=== PATIENT | female | born 1960 | race Caucasian/White ===

== ENCOUNTER 2019-02-18 08:15 | Outpatient (REF) | payer BC, SELFPAY ==
[2019-02-18 12:16] LABS: TSH 3.51 uIU/mL (0.358-3.74)
== END 2019-02-18 08:35 ==
LOC: NCHCN 08:15
PROVIDERS: PCP Nurse Practitioner; Visit Provider Internal Medicine
DX: E03.9 Hypothyroidism, unspecified (principal)
CPT/HCPCS: 84443

== ENCOUNTER 2020-08-15 15:53 | Outpatient (REF) | payer BC, SELFPAY ==
[2020-08-15 21:51] LABS: TSH (W/Ref FT4) 1.88 uIU/mL (0.36-3.74)
[2020-08-15 22:03] LABS: Hemoglobin A1C 6.1 % (<5.7)
== END 2020-08-15 16:13 ==
LOC: NCHCN 15:53
PROVIDERS: PCP Nurse Practitioner; Visit Provider Internal Medicine
DX: E03.9 Hypothyroidism, unspecified (principal); R73.9 Hyperglycemia, unspecified
CPT/HCPCS: 83036; 84443

== ENCOUNTER 2020-08-24 08:58 | Outpatient (CLI) | payer BC, SELFPAY ==
--- NOTE | 2020-08-24 13:15 | DI.MAMMO_ITS ---
EXAM: MG MAMMO SCREENING CLINICAL HISTORY: SCREENING, Z12.31 TECHNIQUE: Bilateral full field digital CC and MLO mammographic images were obtained with 3D tomosyn thesis and utilizing computer aided detection (CAD). COMPARISON: Available for comparison. FINDINGS: Masses/Architectural Distortion: None seen. Microcalcifications: No suspicious pleomorphic-type are seen. Skin Thickening/Nipple Retraction: None. IMPRESSION: 1. No significant interval change with no specific features of malignancy noted. 2. Unless there is more urgent need, screening mammography is recommended, as per [employer] guidelines. BI-RADS Category 1 - Negative Breast Density - Category B - Scattered areas of fibroglandular density A negative radiographic report should not delay biopsy if a dominant or clinically suspicious mass is present. Up to ten percent of cancers are not identified on mammography. A negative report may reinforce clinical impression. Adenosis and dense breasts may obscure an underlying neoplasm. False positive reports average 6 to 10%. Patient will receive a letter notifying them of these results.
== END 2020-08-24 09:18 ==
PROVIDERS: PCP Nurse Practitioner; Visit Provider Internal Medicine
DX: Z12.31 Encounter for screening mammogram for malignant neoplasm of breast (principal)
CPT/HCPCS: 77063; 77067

== ENCOUNTER 2021-08-22 14:48 | Outpatient (REF) | payer BC, SELFPAY ==
[2021-08-22 15:05] LABS: ALT 35 U/L (14-59); AST 21 U/L (15-37); Alkaline Phosphatase 100 U/L (46-116); Anion Gap 7.8 mmol/L (3-11); BUN 18 mg/dL (7-18); Bilirubin, Total 0.3 mg/dL (0.2-1.0); CO2 28.2 mmol/L (21.0-32.0); CREATININE 0.8 mg/dL (0.55-1.02); Calcium 9.1 mg/dL (8.5-10.1); Calculated LDL 180 mg/dL (<100); Chloride 105 mmol/L (98-107); Cholesterol 256 mg/dL (<200); Glucose 96 mg/dL (74-106); HDL Cholesterol 50 mg/dL (40-60); Potassium 4.8 mmol/L (3.5-5.1); Sodium 141 mmol/L (136-145); TSH (W/Ref FT4) 2.47 uIU/mL (0.36-3.74); Total Protein 7.4 g/dL (6.4-8.2); Triglyceride 134 mg/dL (<150)
== END 2021-08-22 14:49 | disposition home or self-care (01) ==
LOC: NCHCN 14:48
PROVIDERS: PCP Nurse Practitioner; Visit Provider Family Medicine
DX: R73.03 Prediabetes (principal); E03.9 Hypothyroidism, unspecified; E78.5 Hyperlipidemia, unspecified; Z00.00 Encounter for general adult medical examination without abnormal findings
CPT/HCPCS: 80053; 80061; 84443

== ENCOUNTER → 2022-03-13 12:37 | Outpatient (CLI) | payer MEDICAID, SELFPAY ==
--- NOTE | 2022-03-13 11:02 | DI.RAD_ITS ---
Exam(s) XR KNEE LT 3V AP,LAT,LORRAINE EXAM: XR KNEE LT 3V AP,LAT,LORRAINE CLINICAL HISTORY: Left Knee Pain - M25.562. TECHNIQUE: 2D digital imaging was performed. COMPARISON: No exams were available for comparison FINDINGS: 3 views There is no evidence fracture although there does appear to be a small joint effusion may signify an internal derangement. No obvious degenerative changes nor osseous lesions. Bone density is normal. IMPRESSION: DATA REPOSITORY: RADIATION DOSE DELIVERED:
== END ==
PROVIDERS: PCP Family Medicine; Visit Provider Family Medicine
DX: M25.562 Pain in left knee (principal); M25.462 Effusion, left knee
CPT/HCPCS: 73562

== ENCOUNTER → 2022-04-25 01:29 | Outpatient (CLI) | payer MEDICAID, SELFPAY ==
--- NOTE | 2022-04-25 06:45 | DI.MRI_ITS ---
Exam(s) MR LOWER JOINT LT WO EXAM: MR LOWER JOINT LT WO CLINICAL HISTORY: PAIN,INTERNAL DERANGEMENT LT KNEE, M23.92 TECHNIQUE: Multiplanar multisequence MRI of the left knee was performed. COMPARISON: CR XR KNEE LT 3V AP,LAT,LORRAINE from 03/13/2022 FINDINGS: EFFUSION: There is a small knee joint effusion. There is also a small charles cyst in the medial popli teal fossa. MARROW:There is prominent bone contusion signal in the tibial plateau, more so medially than laterall y and there is also mild bone edema in the subarticular medial femoral condyle. Also some bone edema in the patella (see below) PATELLOFEMORAL COMPARTMENT: The quadriceps tendon is intact. The patellar ligament is intact. There is significant thinning of the retropatellar cartilage over both facets. Over the central post erior aspect there is full-thickness thinning and subjacent small degenerative cysts in the posterior subarticular patella at this level with surrounding edema in the patella at this level. CRUCIATE LIGAMENTS: The anterior cruciate ligament is intact.The posterior cruciate ligament is intac t. MEDIAL COMPARTMENT/MEDIAL MENISCUS: There is a tear at the level of the root of the posterior horn of the medial meniscus just proximal to its attachment site. In the outer aspect of the meniscus there is some increased signal but has appearance more of myxoid degeneration the true tear. The anterior horn of the medial meniscus is intact. There is mild extrusion of the posterior horn but without gu tter descent. No significant meniscocapsular separation.. There is some cartilage thinning and subarticular edema over the main weight-bearing surface of the m edial femoral condyle. There is no formed osteochondral defect. MEDIAL COLLATERAL LIGAMENT: There is some signal abnormality around the MCL but without a high-grade tear of this structure. LATERAL COMPARTMENT/LATERAL MENISCUS: There is no evidence of lateral meniscal tear.Minimal cartilage findings over the lateral condyle. No subarticular edema in the lateral condyle although there is m ild amount of subarticular edema in the lateral tibial plateau. No fracture lines. ILIOTIBIAL BAND: Intact LATERAL COLLATERAL LIGAMENT COMPLEX: The fibular collateral ligament is intact. The biceps femoris t endon is intact.Popliteus muscle and tendon are intact. IMPRESSION: 1. There is a tear in the posterior horn of the medial meniscus at the level of the root. No bucket- handle configuration. Anterior horn of the medial meniscus is intact. Mild cartilage thinning and s ubarticular edema seen over the main weight-bearing surface of the medial femoral condyle. No osteoc hondral defects. 2. Some increased signal seen around the medial collateral ligament, most prominent just below the david int level. However, there is no high-grade MCL tear. 3. Cruciate ligaments and LCL complex are intact. 4. Advanced thinning of the retropatellar cartilage, most prominent mid level where there is also a s mall 2 millimeter degenerative subarticular cyst in the posterior subarticular patella with some surr ounding intra patellar edema. No evidence of patellar fracture. Other findings as above. DATA REPOSITORY:
== END ==
PROVIDERS: PCP Family Medicine; Visit Provider Student in an Organized Health Care Education/Training Program
DX: M23.92 Unspecified internal derangement of left knee (principal); S83.242A Other tear of medial meniscus, current injury, left knee, initial encounter; M85.68 Other cyst of bone, other site; M94.8X8 Other specified disorders of cartilage, other site; X58.XXXA Exposure to other specified factors, initial encounter
CPT/HCPCS: 73721

== ENCOUNTER 2022-09-18 08:33 | Day surgery (SDC) | payer MEDICAID, SELFPAY ==
--- NOTE | 2022-09-18 06:08 | W.PM.DSUDISC ---
Date of service: 09/18/22 Time of Service: 10:54 Discharge Plan Disposition Patient Disposition: HOME Condition: Good Discharge Details Reason For Visit: screening colonoscopy Attending Provider: Adilson Fraser Primary Care Provider: Michael Morales Home Meds and New Rx's Prescriptions: Continued Saccharomyces boulardii [Digest Probiotic (S.boulardii)] 250 mg capsule 5,000 mmu cells PO DAILY naproxen 125 MG/5 ML suspension 250 mg PO Q6H PRN levothyroxine 25 mcg capsule 25 mcg PO DAILY epinephrine 0.3 mg/0.3 mL auto-injector 0.3 mg IM ONCE Rx Instructions: as a single dose cholecalciferol (vitamin D3) 25 mcg (1,000 unit) capsule 25 mcg PO DAILY loratadine 10 mg Capsule 10 mg PO DAILY Discontinued bisacodyl [Dulcolax (bisacodyl)] 5 mg tablet,delayed release (DR/EC) 5 mg PO ONCE Qty: 4 0RF Rx Instructions: Take according to provider's instructions for colonoscopy prep. polyethylene glycol 3350 17 gram/dose powder 17 g PO ONCE Qty: 238 0RF Rx Instructions: To be taken as directed by prescriber's office for colonoscopy prep. Discharge Instructions Additional Instructions: 1. If tolerated, consume a soft, low fiber diet for 1-2 days. 2[address] Do not drive, drink alcohol, operate machinery, make critical decisions, or do activities that require coordination or balance for 24 hours. 3. Because air was put into your colon during the procedure, expelling air from your rectum (passing gas or farting) is normal. 4. You may not have a bowel movement for 1-3 days because of the colonoscopy prep. This is normal. 5. Go directly to the emergency room if you notice any of the following: Develop chills (warm to touch), or if you have a thermometer and your temperature is above 101 Difficulty breathing or difficultly swallowing Persistent vomiting Severe abdominal pain, other than gas cramps Severe chest pain Black, tarry stools Any bleeding ? exceeding one tablespoon 6. Call your physician if the site where your intravenous was started becomes red, swollen, painful, and warm to touch. 7. Your physician has reviewed your pre-procedure medications. Please continue to take those medications as previously ordered. You will be given specific information/education regarding any changes to your medications before leaving. Activity:: Activity as Tolerated Diet:: As Tolerated Discharge Orders Discharge Orders: Discharge Order (Routine); Ordered 09/18/22 Ordered By: Adilson Fraser DS: Diagnosis Discharge Diagnosis (1) Screening for colon cancer: Status: Acute Asessment and Plan: No evidence of any polyps. Very mild diverticulosis. Follow-up for next colonoscopy in 10 years
--- NOTE | 2022-09-18 06:10 | W.COLOREPORT ---
Date of service: 09/18/22 Time of Service: 10:55 Colonoscopy Report Date of procedure: 09/18/22 Pre-op diagnosis general: Routine health maintenance screening colonoscopy Post-op diagnosis procedure note: other (Mild diverticulosis) Procedure: Screening colonoscopy Surgeon: Adilson Fraser Anesthesia Type: General:No Airway Estimated blood loss (mL): 0 Pathology: none sent Complications: None Disposition: same day Indications: Monserrat is 62 years old and had a previous colonoscopy in the past that revealed hyperplastic polyps. She is here for 10-year follow-up screening colonoscopy as part of routine health maintenance Prep: Miralax/Dulcolax Procedure Start Time: 10:37 Procedure End Time: 10:47 Retraction Time: 8 Findings: very mild diverticulosis Procedure Description: After the induction of monitored anesthetic care, and with the patient in left lateral decubitus position, I began by performing an external anorectal exam.? Perineum and skin were normal, as was the anal verge.? There was no evidence of external hemorrhoids.? Next, I performed a digital rectal exam.? I did not appreciate any abnormal findings.? Next, I advanced a colonoscope into the rectal vault.? I performed retroflexion.? I did not see signs of pathologic internal hemorrhoids.? Using insufflation, I then advanced the colonoscope beyond the rectal folds and into the sigmoid colon before advancing towards the cecum.? The quality of the prep was excellent.? The scope was noted to be in the cecum by identification of the ileocecal valve and appendiceal orifice.? I then began withdrawing the colonoscope using repeated irrigation as necessary for full evaluation of the colonic mucosa. There was minimal sigmoid diverticulosis. Once the scope was withdrawn to the level of the rectum, great care was taken to examine portions of the rectal folds.? Finally, the scope was withdrawn and the patient was brought to the same-day surgery recovery unit as the anesthetic wore off. ?The findings and instructions were shared with the patient prior to discharge.
[2022-09-18 08:06] VITALS: BP 118/72; PULSE 69; RESP 16; TEMP 36.2; O2SAT 99
[2022-09-18] MEDS: Lactated Ringers 1,000 ML 80 ML IV (09:05)
--- NOTE | 2022-09-18 09:27 | W.ANESPRE ---
General Info Date of Service Date Performed: 09/18/22 Height: 5 ft 3 in Weight: 81.737 kg Body Mass Index (BMI): 31.9 Surgical Procedure: Operation Date: 09/18/22 10:05 Proposed Procedure Side Surgeon kia Fraser MD Meds Allergies and Home Medications Allergies Allergy/AdvReac Type Severity Reaction Status Date / Time No Known Drug Allergies Allergy Unverified 09/18/22 08:40 Home Medication Medication Instructions Recorded naproxen 125 mg/5 mL oral 250 mg PO Q6H PRN 08/31/15 suspension cholecalciferol (vitamin D3) 25 25 mcg PO DAILY 09/05/21 mcg (1,000 unit) capsule epinephrine 0.3 mg/0.3 mL 0.3 mg IM ONCE 09/05/21 injection, auto-injector levothyroxine 25 mcg capsule 25 mcg PO DAILY 09/05/21 Saccharomyces boulardii 250 mg 5,000 mmu cells PO DAILY 09/10/22 capsule (Digest Probiotic (S.boulardii)) loratadine 10 mg capsule 10 mg PO DAILY 09/17/22 Current Visit Medications: Current Medications Generic Name Dose Route Start Last Admin Trade Name Freq PRN Reason Stop Dose Admin Hyoscyamine Sulfate 0.125 mg 09/18/22 06:11 Hyoscyamine 0.125 Mg Sl/Oral/Chew SL DIRECTED PRN Ringer's Solution 1,000 mls @ 80 mls/hr 09/18/22 06:00 09/18/22 09:05 IV 10/17/22 23:59 80 mls/hr INFUSION GURPREET Administration IV Miscellaneous Supplies 1 each 09/18/22 06:00 Iv Access IV 10/17/22 23:59 DIRECTED GURPREET Ondansetron HCl 4 mg 09/18/22 06:11 Ondansetron 4 Mg/2 Ml Vial IVP Q4H PRN PRN Nausea / Vomiting Sodium Chloride 0 ml 09/18/22 06:00 Normal Saline Flush 10 Ml Syr IV 10/17/22 23:59 PRN PRN Sodium Chloride 0 ml 09/18/22 06:00 Normal Saline 10 Ml Vial IJ 10/17/22 23:59 DIRECTED PRN Sterile Water 0 ml 09/18/22 06:00 Water,Injection,Sterile 10 Ml Vial IJ 10/17/22 23:59 DIRECTED PRN PFSH Active Problems Active Problems: Problem Status Onset Code Screening for colon cancer Z12.11 Prediabetes R73.03 Intermittent palpitations R00.2 Hypothyroid E03.9 Family history of thyroid nodule Z83.49 Internal derangement of left knee 02/26/22 M23.92 Tear of medial meniscus of left knee S83.242A Medical History Medical History Asthma History of hemorrhoids History of thyroid nodule Hyperlipidemia Obesity Surgical History Surgical History History of colonoscopy Tobacco Smoking/Tobacco Use Status: Never Alcohol Alcohol Intake: never Substance Use Substance use: Never Substance use type: does not use Vital Signs and Lab Results Vital Signs Most Recent Vital Signs in EMR: Most Recent Vital Signs Temp Pulse Resp BP Pulse Ox 36.2 C L 69 16 118/72 99 09/18/22 08:06 09/18/22 08:06 09/18/22 08:06 09/18/22 08:06 09/18/22 08:06 Lab Results Blood Type / Crossmatch: No Data to Display Complete Blood Count: No Data to Display Complete Metabolic Panel: No Data to Display Liver Function Panel: No Data to Display Coagulation Panel: No Data to Display Cardiac Panel: No Data to Display Arterial Blood Gas: No Data to Display Venous Blood Gas: No Data to Display Pancreas Panel: No Data to Display Thyroid Panel: No Data to Display Infectious Disease: No Data to Display Blood Cultures: No Data to Display Toxicology Panel: No Data to Display Anesthesia Assessment and Plan Anesthesia History Personal History: No History of Anesthesia Complications Family History: No Family History of Anesthesia Complications Exercise Tolerance Exercise Tolerance: Metabolic Equivalents>4 Pertinent Negatives Pertinent Negatives: No Symptoms of GERD, No Major Cardiovascular Symptoms or Complaints, No Major Pulmonary Symptoms or Complaints and No History of CVA/TIA Cardiac & Pulmonary Exam Cardiac Exam: Normal S1/S2 Heart Sounds Pulmonary Exam: Clear Bilateral Breath Sounds Implantable Cardiac Device Does patient have a Pacemaker or an ICD?: No Airway Exam Known Difficult Airway: No Mallampati Class: 1 Mouth Opening: Normal (> 3cm) Thyromental Distance: Greater than 3 cm Neck Range of Motion: Full ROM Neck Circumference: Normal Teeth Condition: Normal Dentition ASA Classification ASA Score: ASA 2 Emergency Case?: No NPO Status NPO Status: NPO Clears >2 hours, Solids >8 hours Anesthesia Plan Resuscitation Status: Full Code Anesthesia Technique: General Anesthesia Airway Planned: Natural Airway Monitors Used: Standard Monitors
[2022-09-18 09:52] VITALS: BMI 31.9
[2022-09-18 10:55] VITALS: BP 108/69; PULSE 64; RESP 15; TEMP 35.6; O2SAT 97
[2022-09-18 11:26] VITALS: BP 123/57; PULSE 64; RESP 16; TEMP 36; O2SAT 100
--- NOTE | 2022-09-18 12:08 | W.ANESPOSTOP ---
Postoperative Evaluation Date, Time and Location Date Performed: 09/18/22 Time Performed: 11:05 Patient Location: Day Surgery Unit Vital Signs Most Recent Imported Vital Signs: Most Recent Vital Signs Temp Pulse Resp BP Pulse Ox 36.0 C L 64 16 123/57 L 100 09/18/22 11:26 09/18/22 11:26 09/18/22 11:26 09/18/22 11:26 09/18/22 11:26 Pain Score Most Recent Pain Score: Most Recent Pain Score Pain Level 0 09/18/22 11:26 Assessment Mental Status: Awake (Alert & Oriented to Patient Baseline) Airway and Respiratory Function: Patent airway with normal (patient baseline) respiratory exam Cardiovascular Function: Hemodynamically Stable Hydration Status: Adequately Hydrated Nausea & Vomiting: No Nausea or Vomiting Pain: Pt. Denies Any Pain Peripheral Nerve Block: Patient did not receive a nerve block
== END 2022-09-18 11:55 | disposition home or self-care (01) ==
PROVIDERS: PCP Family Medicine; Visit Provider Surgery
PROC: 0DJD8ZZ Inspection of Lower Intestinal Tract, Via Natural or Artificial Opening Endoscopic (ICD-10-PCS; CPT 45378; principal; 2022-09-18 10:00)
DX: Z12.11 Encounter for screening for malignant neoplasm of colon (principal); K57.30 Diverticulosis of large intestine without perforation or abscess without bleeding; R73.03 Prediabetes; E03.9 Hypothyroidism, unspecified
CPT/HCPCS: 45378

== ENCOUNTER 2022-10-02 18:37 | Outpatient (REF) | payer MEDICAID, SELFPAY ==
[2022-10-02 15:37] LABS: Calculated LDL 193 mg/dL (<100); Cholesterol 277 mg/dL (<200); HDL Cholesterol 50 mg/dL (40-60); TSH (W/Ref FT4) 2.23 uIU/mL (0.36-3.74); Triglyceride 170 mg/dL (<150)
== END 2022-10-02 18:38 | disposition home or self-care (01) ==
LOC: NCHCN 18:37
PROVIDERS: PCP Family Medicine; Visit Provider Family Medicine
DX: E03.9 Hypothyroidism, unspecified (principal); E78.5 Hyperlipidemia, unspecified; R73.03 Prediabetes; Z00.00 Encounter for general adult medical examination without abnormal findings
CPT/HCPCS: 80061; 84443

== ENCOUNTER 2022-11-15 01:13 | Outpatient (CLI) | payer MEDICAID, SELFPAY ==
--- NOTE | 2022-11-15 | DI.MAMMO_ITS ---
Exam(s) MAMMO SCREENING EXAM: MAMMO SCREENING CLINICAL HISTORY: SCREENING, Z12.39. TECHNIQUE: Bilateral full field digital CC and MLO mammographic images were obtained with 3D tomosyn thesis and utilizing computer aided detection (CAD). COMPARISON: Prior mammograms were reviewed. FINDINGS: There has been no significant change in the appearance and distribution of the fibroglandular tissue. No CAD designations. There are no new spiculated masses nor malignant appearing microcalcification groups. Small 3 millimeter round benign-appearing nodule located 3.5 cm in nipple on the CC view, unchanged f rom prior study There is no significant architectural distortion nor skin thickening-retraction. IMPRESSION: Stable benign-appearing findings. No radiographic evidence of malignancy. BI-RADS Category 2 - Benign Findings Breast Density - Category B - Scattered areas of fibroglandular density Breast density Category C or D implies that the patient has dense breast tissue. Dense breast tissue can make it harder to find cancer on a mammogram. Dense breast tissue is also associated with an incr eased risk of breast cancer. This information about the result of the mammogram report was provided to the patient to raise their awareness. Use this report when you speak with the patient about their risks for breast cancer, which includes their family history. At that time, you may recommend additional screening tests (Ultrasoun d or MRI) as these tests may add significant information. A negative radiographic report should not delay biopsy if a dominant or clinically suspicious mass is present. Up to ten percent of cancers are not identified on mammography. A negative report may reinforce clinical impression. Adenosis and dense breasts may obscure an underlying neoplasm. False positive reports average 6 to 10%. Patient will receive a letter notifying them of these results.
== END 2022-11-15 01:33 ==
LOC: DI 01:14
PROVIDERS: PCP Family Medicine; Visit Provider Family Medicine
DX: Z12.31 Encounter for screening mammogram for malignant neoplasm of breast (principal)
CPT/HCPCS: 77063; 77067

== ENCOUNTER 2023-04-03 10:26 | Outpatient (REF) | payer MEDICAID, SELFPAY ==
--- NOTE | 2023-04-03 09:25 | PAPFT_PTH ---
PATIENT: Monserrat Bass LOC: [facility]#:[id number] AGE/SX: 63/F ROOM: RE04/03/[address]: Michael Morales : 1960 BED: DIS: 04/03/2023 SPEC #: [id number] RECD: 04/03/23 17:38 STATUS: SIMÓN REQ #: [id number] BARBARA: 04/03/23 09:[address]: Michael Morales DEPT: [facility] Cytology RECD BY: Angelica Ibarra Tissues: 1 - CX/ENDOCX FOR PAP SMEARS Procedures: PAP THIN PREP/UVM Screening HPV DNA PROBE Comments: [id number]
[2023-04-03 16:25] LABS: HGB 13.6 g/dL (11.2-15.7); MCH 28.3 pg (27.0-33.0); MCHC 33.2 % (32.0-36.0); MCV 85 fL (80-95); MPV 12.1 fL (8.0-11.0); Platelet Count 178 10^3/uL (130-400); RBC 4.81 10^6/uL (3.93-5.22); RDW 12.3 % (11.7-14.6); RDW-SD 38.4 fL
[2023-04-03 16:52] LABS: ALT 39 U/L (14-59); AST 24 U/L (15-37); Albumin 3.8 g/dL (3.4-5.0); Alkaline Phosphatase 91 U/L (46-116); Anion Gap 6.7 mmol/L (3-11); BUN 15 mg/dL (7-18); Bilirubin, Total 0.4 mg/dL (0.2-1.0); CO2 27.3 mmol/L (21.0-32.0); CREATININE 0.8 mg/dL (0.55-1.02); Calcium 8.9 mg/dL (8.5-10.1); Calculated LDL 161 mg/dL (<100); Chloride 106 mmol/L (98-107); Cholesterol 241 mg/dL (<200); Estimated GFR 82.23 (mL/min/1.73m2); Glucose 110 mg/dL (74-106); HDL Cholesterol 52 mg/dL (40-60); Potassium 4.3 mmol/L (3.5-5.1); Sodium 140 mmol/L (136-145); TSH 2.78 uIU/mL (0.36-3.74); Total Protein 7.5 g/dL (6.4-8.2); Triglyceride 144 mg/dL (<150)
[2023-04-03 17:12] LABS: Hemoglobin A1C 5.9 % (<5.7)
== END 2023-04-03 10:27 | disposition home or self-care (01) ==
LOC: NCHCN 10:26
PROVIDERS: PCP Family Medicine; Visit Provider Family Medicine
DX: Z00.00 Encounter for general adult medical examination without abnormal findings (principal); E03.9 Hypothyroidism, unspecified; R73.03 Prediabetes
CPT/HCPCS: 80053; 80061; 85027; 88142; 83036; 84443; 87624

== ENCOUNTER 2024-04-22 14:49 | Outpatient (REF) | payer MEDICARE, BC, SELFPAY ==
[2024-04-22 16:45] LABS: Calculated LDL 161 mg/dL (<100); Cholesterol 238 mg/dL (<200); HDL Cholesterol 51 mg/dL (40-60); TSH (W/Ref FT4) 3.29 uIU/mL (0.36-3.74); Triglyceride 133 mg/dL (<150)
[2024-04-22 16:52] LABS: Hemoglobin A1C 6.1 % (<5.7)
[2024-04-23 22:39] LABS: Hepatitis C Ab w Rflx HCV PCR Negative (Negative)
== END 2024-04-22 14:50 | disposition home or self-care (01) ==
LOC: NCHCN 14:49
PROVIDERS: PCP Family Medicine; Visit Provider Family Medicine
DX: R73.03 Prediabetes (principal); E03.9 Hypothyroidism, unspecified; Z11.59 Encounter for screening for other viral diseases; Z13.6 Encounter for screening for cardiovascular disorders
CPT/HCPCS: 80061; 86803; 83036; 84443

== ENCOUNTER → 2024-04-27 03:43 | Outpatient (CLI) | payer MEDICARE, SELFPAY ==
--- NOTE | 2024-04-27 | DI.DEXA_ITS ---
Exam(s) XR DEXA BONE DENSITY W/WO ENRIKE EXAM: XR DEXA BONE DENSITY W/WO ENRIKE CLINICAL HISTORY: ASYMPTOMATIC MENOPAUSAL STATE, Z78.0 TECHNIQUE: [employer] C densitometer analysis of left hip, lumbar spine and left forearm. Lat eral survey image of the thoracic and lumbar spine. COMPARISON: No exams were available for comparison FINDINGS: Lateral view of the thoracic and lumbar spine shows no evidence of compression fractures. Bone mineral density measurements of the lumbar spine correspond to a total T-score of -1.2, in the osteopenic range. Bone mineral density measurements of the left hip correspond to a total T-score of -0.4. The femor al neck T-score is -0.7, in the normal range.. Theleft forearm bone mineral density measurements correspond to a T-score of the distal 3rd of -2.1, in the osteopenic range. IMPRESSION: Osteopenia of the spine and forearm. Normal bone mineral density of the hip.
== END ==
PROVIDERS: PCP Family Medicine; Visit Provider Family Medicine
DX: Z78.0 Asymptomatic menopausal state (principal); M85.88 Other specified disorders of bone density and structure, other site; M85.832 Other specified disorders of bone density and structure, left forearm
CPT/HCPCS: 77080

== ENCOUNTER 2025-04-19 13:26 | Outpatient (REF) | payer MEDICARE, SELFPAY ==
[2025-04-19 15:10] LABS: TSH 3.26 uIU/mL (0.36-3.74)
== END 2025-04-19 13:27 | disposition home or self-care (01) ==
LOC: NCHCN 13:26
PROVIDERS: PCP Family Medicine; Visit Provider Family Medicine
DX: E03.9 Hypothyroidism, unspecified (principal)
CPT/HCPCS: 84443

== ENCOUNTER 2025-04-20 05:31 | Outpatient (CLI) | payer MEDICARE, SELFPAY ==
--- NOTE | 2025-04-20 | DI.MAMMO_ITS ---
Exam(s) MAMMO SCREENING EXAM: MAMMO SCREENING CLINICAL HISTORY: SCREENING, Z12.31. TECHNIQUE: Bilateral full field digital CC and MLO mammographic images were obtained with 3D tomosyn thesis and utilizing computer aided detection (CAD). COMPARISON: Prior mammograms were reviewed. FINDINGS: There has been no significant change in the appearance and distribution of the fibroglandular tissue. Previously described small nodule in the left breast has matured into a benign calcified oral cyst. There are no new spiculated masses nor new malignant appearing microcalcification groups. There is no significant architectural distortion nor skin thickening-retraction. IMPRESSION: Benign findings. No radiographic evidence of malignancy. BI-RADS Category 1 - Negative Breast Density - Category B - There are scattered areas of fibroglandular density. Breast density Category C or D implies that the patient has dense breast tissue. Dense breast tissue can make it harder to find cancer on a mammogram. Dense breast tissue is also associated with an incr eased risk of breast cancer. This information about the result of the mammogram report was provided to the patient to raise their awareness. Use this report when you speak with the patient about their risks for breast cancer, which includes their family history. At that time, you may recommend additional screening tests (Ultrasoun d or MRI) as these tests may add significant information. A negative radiographic report should not delay biopsy if a dominant or clinically suspicious mass is present. Up to ten percent of cancers are not identified on mammography. A negative report may reinforce clinical impression. Adenosis and dense breasts may obscure an underlying neoplasm. False positive reports average 6 to 10%. Patient will receive a letter notifying them of these results.
== END 2025-04-20 05:51 ==
LOC: DI 05:31
PROVIDERS: PCP Family Medicine; Visit Provider Family Medicine
DX: Z12.31 Encounter for screening mammogram for malignant neoplasm of breast (principal); R92.323 Mammographic fibroglandular density, bilateral breasts
CPT/HCPCS: 77063; 77067